=== PATIENT | female | born 2000 | race Caucasian/White ===

== ENCOUNTER 2024-03-01 15:22 | Outpatient (CLI) | payer OTHER, SELFPAY ==
--- NOTE | ~2024-03-01 | US_ITS ---
US breast RT limited INDICATION: Palpable right breast abnormality TECHNIQUE: Dedicated Limited right breast ultrasound COMPARISON: No prior studies for comparison. FINDINGS: The right breast is/are composed of normal heterogeneous echotexture without focal solid or cystic mass. IMPRESSION: 1: Normal right breast ultrasound. BI-RADS CATEGORY 1 - NEGATIVE Reviewed, dictated and finalized at location B.
== END 2024-03-01 15:23 | disposition home or self-care (01) ==
LOC: MICIMG 15:25
DX: N63.14 Unspecified lump in the right breast, lower inner quadrant (principal)
CPT/HCPCS: 76642